=== PATIENT | male | born 1965 | race Caucasian/White ===

== ENCOUNTER → 2016-08-31 | Outpatient (CLI) | payer BC ==
--- NOTE | 2016-09-01 12:45 | XCELERA REPORT ---
[address] [address] Lower Extremity Venous Evaluation Name: DM DE LA CRUZ Age: 51 yrs Gender: Male : 1965 Patient Status: Outpatient Patient Location: Study Date: 08/31/2016 03:02 PM Procedure: Color flow and duplex imaging of the veins of the right lower extremity as well as the left Common Femoral vein. Reason For Study: RLE THROMBOPHLEBITIS I80.01 Ordering Physician: RHONDA CONNOR Performed By: Raul Newton Right Sided Venous Evaluation Abnormal filling, echogenic thrombus, no flow in the Greater Saphenous vein from the proximal to below knee level. Otherwise normal vessel filling wall to wall, compression and augmentation as well as Colour flow down to the infrageniculate veins. Left Sided Venous Evaluation The left common femoral vein is fully compressible. Spontaneous and phasic flow is present in the left common femoral vein. Interpretation Summary No duplex evidence of DVT or obstruction in the right lower extremity nor in the left Common Femoral vein. Superficial phlebitis in the Greater Saphenous vein on the right noted. : GEETA, NO > Chris Jamil
== END ==
LOC: SP 14:45
PROVIDERS: ATTEND Internal Medicine
DX: I80.01 Phlebitis and thrombophlebitis of superficial vessels of right lower extremity (principal)
CPT/HCPCS: 93971